=== PATIENT | female | born 1990 | race African-American/Black ===

== ENCOUNTER 2017-09-10 23:24 | Emergency (ER) | payer BC ==
[~2017-09-10] VITALS: Ht 175.3 cm; Wt 90.5 kg
[2017-09-11 00:09] LABS: HEMATOCRIT 35.8 % (36.0-46.0); MCH 29.3 PG (29.0-34.0); MCHC 33.5 G/DL (30.0-36.0); MCV 87.5 FL (83-99); PLATELET COUNT 287 K/uL (156-360); RBC DIS.WIDTH-SD 41.1 % (39-53); RED BLOOD COUNT 4.09 M/uL (3.80-5.20); WHITE BLOOD COUNT 9.7 K/uL (4.1-10.2)
[2017-09-11 00:21] LABS: CHLORIDE 106 mEq/L (99-109); POTASSIUM 3.9 mEq/L (3.7-5.4); SODIUM 140 mEq/L (136-147)
[2017-09-11 00:23] LABS: GLUCOSE 89 mg/dL (70-99)
[2017-09-11 00:27] LABS: CREATININE 0.8 mg/dL (0.6-1.3); GFR ESTIMATE (CALCULATED) > 59 mL/min/
[2017-09-11 00:28] LABS: UREA NITROGEN (BUN) 10 mg/dL (9-23)
[2017-09-11 00:32] LABS: TROP-I INTERPRETATION NEGATIVE; TROPONIN-I < 0.01 ng/mL (0.0-0.30)
[2017-09-11 02:11] LABS: D-DIMER ELISA < 150.00 ng/mLDDU (<230)
[2017-09-11 02:32] VITALS: BP 111/76
== END 2017-09-11 02:52 | disposition home or self-care (01) ==
LOC: EME 23:24
PROVIDERS: Emergency Medicine
DX: R07.9 Chest pain, unspecified (principal); G40.909 Epilepsy, unspecified, not intractable, without status epilepticus
CPT/HCPCS: 71046; 80048; 84484; 85027; 85379; 93005; 99281; 99284